=== PATIENT | female | born 1990 | race Caucasian/White ===

== ENCOUNTER → 2017-05-08 14:54 | Outpatient (CLI) | payer OTHER, SELFPAY ==
[2017-05-08 11:10] VITALS: BP 147/86; BMI 39.5
[2017-05-08 20:05] LABS: Chlamydia Trachomatis by PCR Negative (Negative); Neisserai gonorrhoeae by PCR Negative (Negative); Probe Check PASS; Sample Adequacy Control PASS; Specimen Processing Control PASS
[2017-05-13 12:22] LABS: HPV Reflexed? NOT INDICATED
== END ==
PROVIDERS: Visit Provider Nurse Practitioner Women's Health
DX: Z12.4 Encounter for screening for malignant neoplasm of cervix (principal); Z11.3 Encounter for screening for infections with a predominantly sexual mode of transmission
CPT/HCPCS: 87491; 87591; 88175; G0145

== ENCOUNTER → 2017-06-02 20:52 | Outpatient (CLI) | payer OTHER, SELFPAY | PROVIDERS: Visit Provider Nurse Practitioner Women's Health | DX: N89.8 Other specified noninflammatory disorders of vagina (principal) | CPT/HCPCS: 87070; 87205 ==

== ENCOUNTER → 2017-07-22 15:54 | Outpatient (CLI) | payer OTHER, SELFPAY | PROVIDERS: Visit Provider Physician Assistant Surgical | DX: J02.9 Acute pharyngitis, unspecified (principal) | CPT/HCPCS: 87081 ==

== ENCOUNTER 2018-10-06 12:51 | Observation (INO) | payer OTHER, SELFPAY ==
[2018-08-26 08:51] VITALS: BMI 39.5
[2018-09-30 08:43] VITALS: BMI 39.5
--- NOTE | 2018-10-05 17:47 | PCM.HP.BLA ---
History and Physical Date of Admission: 10/06/18 HISTORY OF PRESENT ILLNESS 28 year old woman presents with complaints of bilateral macromastia as well as associated painful symptomatology of neck pain, thoracic back pain, bilateral shoulder pain from shoulder grooving from the weight of her breasts on her bra straps, and inframammary intertrigo for which she uses powders for relief. She denies any trauma to her breasts. Denies any nipple discharge. She has been on a weight loss program with watching what she eats and doing cross fit exercise. She has lost 6 lbs in the past 2 months. She has seen a Chiropractor in the past for her back pain without much pain relief. She has not had a mammogram. She does not have a family history of breast cancer. We have received medical approval for the breast reduction surgery. It is scheduled for next week, 10/06/18. She presents at this time for preop evaluation. PAST MEDICAL HISTORY Back problem Frequent headaches UTI (urinary tract infection) Anxiety and depression PAST SURGICAL HISTORY None. ALLERGIES amoxicillin penicillin G MEDICATIONS diazepam FAMILY HISTORY Mother - Depression, Obesity, Alcohol abuse, Anxiety, Hormone imbalance Father - Hypertension, High cholesterol Grandfather - Diabetes Grandmother - Diabetes SOCIAL HISTORY Smoking Status: Never smoker alcohol intake: current alcohol intake frequency: holidays/special occasions only Alcohol type: wine details: social substance use type: does not use REVIEW OF SYSTEMS General - Denies fever, fatigue. Has 6 lb weight loss in the past 2 months. Eyes - Denies cataracts and glaucoma. ENT - Denies nasal congestion and sore throat. Endocrine - Denies excessive thirst and urination. Skin - Denies suspicious lesions and skin cancer. Has inframammary intertrigo for which she uses powders for relief. Musculoskeletal - Denies joint pain, joint stiffness, weakness of muscles and joints, and arthritis. Has neck pain and back pain. Her neck and back pain involve cervical and thoracic area. Has bilateral shoulder pain from shoulder grooving from the weight of her breasts on her bra straps. Neuro - Has headaches. Denies lightheadedness. Cardiovascular - Denies chest pain and shortness of breath with exertion. Denies fatigue and lightheadedness. Psych - Has a history of anxiety and depression. Respiratory - Denies shortness of breath and chronic cough. Has asthma. Gastrointestinal - Denies nausea, vomiting, diarrhea and constipation. Hematologic - Denies abnormal bruising and bleeding. Genitourinary - Denies hematuria. Has frequent urinary tract infections. PHYSICAL EXAMINATION General - Alert and oriented. Patient's bra size is 40 G. HEENT - PERRL. EOMI. Throat is clear. Neck - Supple. No bony tenderness. There is some pericervical soft tissue tenderness. Lungs- Clear to auscultation. Heart - Regular rate and rhythm. Breasts - Patient has bilateral macromastia. No breast masses palpable. No axillary adenopathy noted. Distance from midclavicular line on the left to the nipple is 34 cm and from the nipple to the inframammary fold is 12 cm. Distance from midclavicular line on the right to the nipple is 35 cm and from nipple to the inframammary fold is 12 cm. Nipple areolar complex diameter is 7 cm bilaterally. No active inframammary intertrigo noted at this time. Abdomen - Soft and non distended. Back - No bony tenderness noted. There is perivertebral soft tissue tenderness in the upper thoracic area. Extremities - FROM. No axillary adenopathy. Radial pulses are palpable. There is some bilateral shoulder tenderness with shoulder grooving from the weight of her breasts on her bra straps. Neuro - CN II-XII grossly intact. Psych - Normal and mood and affect. ASSESSMENT 1. Bilateral macromastia. 2. Neck pain. 3. Thoracic back pain. 4. Bilateral shoulder pain from shoulder grooving from the weight of the breasts on her bra straps. 5. Inframammary intertrigo. PLAN Discussed with the patient the procedure of breast reduction mammoplasty. I feel this procedure would be beneficial in this patient as it would help relieve her painful symptomatology. She will not need a mammogram preoperatively as she is only 28 years old. At some point postoperatively would like to get a breast reduction baseline mammogram. I would remove approximately 700 g of breast tissue per side. We will send the tissue to pathology for analysis to rule out carcinoma. Discussed with patient the extent of scarring for this procedure. The biggest risk for wound healing problems is the T-zone area. Usually wound care and sometimes antibiotics are necessary for healing in this area. She would have drains in for a few days depending on the amount of tissue that is removed. She will be on antibiotics until the drains are removed. Also discussed with the patient that a breast reduction procedure may make it difficult to breast feed in the future. She states that if she has children in the future and if she cannot breast feed, then she will bottle feed. In general, the final breast size would range from a full C to a low D cup. Patient voices understanding. Surgery will be done under general anesthesia with a surgical observation overnight stay in the hospital. We have received medical approval from her insurance carrier for the breast reduction surgery. She had some preop questions that were answered personally to her satisfaction. Consents were signed. Patient was informed of the risks and complications of the procedure including alternatives to surgery. These were discussed with her personally. She voices understanding and wishes to proceed. Some of the risks and complications were included in a form from the [place] [employer]. She states she is a little nervous about her upcoming surgery. Will write a script for some Valium (7 tabs) to help with her anxiety preoperatively. After her surgery, she will be on a lifting restriction (20 lbs) for 6 weeks. Since she states she lifts more than that at work, will tentatively have her off work for 6 weeks. She may go back to work a little sooner if healing is ok.
[2018-10-06] VITALS (10 sets, daily range): BP systolic 100–126; BP diastolic 57–81; PULSE 62–96; RESP 14–16; TEMP 36.4–36.8; O2SAT 95–100; BMI 38.0
[2018-10-06 06:24] LABS: Internal QC Validated? YES +Cl - CLEAR BKGD; Pregnancy, Urine Negative Negative
[2018-10-06] MEDS: Cefazolin 2 GM in 0.9% Normal Saline 100 ML IV (07:28)
--- NOTE | 2018-10-06 07:30 | BR_PTH ---
PATIENT: CLARE SOLANO LOC: [facility] U#:[id number] AGE/SX: ROOM: [facility]321 RE10/06/[address]: Dr. Bert Melton MD : 1990 BED: 1 DIS: 10/07/2018 SPEC #: [id number] RECD: 10/06/18 12:34 STATUS: IVANA REQ #: [id number] JERROD: 10/06/18 07:[address]: Bert Melton DEPT: SURGICAL PATHOLOGY RECD BY: Sawyer Borrego ENTERED: 10/06/18 14:18 SP TYPE: MAMOPLASTY OTHR DR: Dr. Baltazar Coughlin MD No Primary Care Phys Tissues: A - Left breast, NOS B - Right breast, NOS Procedures: Surgery Specimen Level IV HEADER OPERATION: Bilateral breast reduction mammoplasty PRE-OP DIAGNOSIS: Bilateral macromastia; neck and thoracic back pain, bilateral shoulder grooving TISSUE SUBMITTED: A - Left breast tissue, B - Right breast tissue MICROSCOPIC DIAGNOSIS A. Left breast, reduction mammoplasty: Mild fibrocystic change. Densely collagenized mammary parenchyma. Skin with no pathologic change. B. Right breast, reduction mammoplasty: Mild fibrocystic change. Densely collagenized mammary parenchyma. Skin with no pathologic change. Focal microscopic fibroadenomatous change. AM:lance 10/08/18 MICROSCOPIC DESCRIPTION Slides are reviewed. GROSS DESCRIPTION A - Received in fixative is one container labeled with the patient's name and designated left breast tissue. The specimen consists of multiple pieces of fibroadipose tissue with a few of the pieces showing maxwell-white skin weighing in aggregate 992 gm and measures in aggregate 23 x 23 x 8 cm. Sections reveal maxwell-yellow adipose cut surfaces with focal fibrous areas. No mass lesion is identified. Ornamental Metal Erector Apprentice sections are submitted in six cassettes. Cassette 1 also contains the skin piece. B - Received in fixative is one container labeled with the patient's name and designated right breast tissue. The specimen consists of multiple pieces of fibroadipose tissue with a few of the pieces showing maxwell-white skin weighing in aggregate 867 gm and measures in aggregate 24 x 22 x 6 cm. Sections reveal maxwell-yellow adipose cut surfaces with focal fibrous areas. No mass lesion is identified. Ornamental Metal Erector Apprentice sections are submitted in six cassettes. Cassette 1 also contains the skin piece. / SJ:lance 10/07/18 TC:5 CPT: 21373 x2
--- NOTE | 2018-10-06 11:26 | SUR.OPER ---
RANGE OF MOTION BLE. KENAN
--- NOTE | 2018-10-06 11:29 | SUR.OPER ---
PATIENTS FAMILY GIVEN AN UPDATE
--- NOTE | 2018-10-06 12:07 | SUR.OPER ---
ancef 1 gram given per anesthesia at 12 noon
--- NOTE | 2018-10-06 12:44 | PCM.OPRPT ---
Report of Operation Date of Procedure: 10/06/18 Pre-Operative Diagnosis: 1. Bilateral macromastia. 2. Neck pain. 3. Thoracic back pain. 4. Bilateral shoulder pain from shoulder grooving from the weight of the breasts on her bra straps. 5. Inframammary intertrigo. Post-Operative Diagnosis: Same. Surgery/Procedure Performed:: Bilateral breast reduction mammaplasty. Description of Surgical Findings:: 28 year old woman presents with complaints of bilateral macromastia as well as associated painful symptomatology of neck pain, thoracic back pain, bilateral shoulder pain from shoulder grooving from the weight of her breasts on her bra straps, and inframammary intertrigo for which she uses powders for relief. She denies any trauma to her breasts. Denies any nipple discharge. She has been on a weight loss program with watching what she eats and doing cross fit exercise. She has lost 6 lbs in the past 2 months. She has seen a Chiropractor in the past for her back pain without much pain relief. She has not had a mammogram. She does not have a family history of breast cancer. We have received medical approval for the breast reduction surgery. Patient was informed of the risks and complications of the procedure including alternatives to surgery. These were discussed with the patient personally. Patient voices understanding and wishes to proceed. Some of the risks and complications were included in a form from the [place] [employer]. IV Fluids - 1700 ml. Urine Output -515 ml. Tissue removed from the left breast - 952 grams. Tissue removed from the right breast - 832 grams. I used Ara absorbable hemostat, (I used 4 vials, 2 in each breast). Reference Number - [id number]. Lot Number - [id number]. Expiration - May 28, 2023. foam rubber fabricator: Matt Segura. Type of Anesthesia:: General Specimen's removed: 1. Left breast tissue to Pathology. 2. Right breast tissue to Pathology. Drains: James x2 (one in each breast). Estimated Blood Loss (mL): 250 ml. Fluids Replaced: 2215 ml (IV Fluids 1700 ml, Urine Output 515 ml). Description of Procedure: The patient was taken to the operating room and in the sitting position, preoperative markings were made. The sternum midline was marked down to the umbilicus. The inframammary folds were marked bilaterally. The midclavicular line was then marked down to the nipple, then from the nipple to the inframammary fold. The inframammary fold was then superimposed on the midclavicular line and I made a point 1 cm below that to be the new position of the nipple-areolar complex. 7 cm lines were then drawn divergent from that point to encompass the nipple-areolar complex. The distance between the divergent lines was 9 cm. The patient was then placed in the supine position and placed under general anesthesia and her breasts were prepped and draped in usual fashion. SCDs were placed for DVT prophylaxis. Perioperative antibiotics were given intravenously. A Velez catheter was also placed. I then tattooed the preoperative markings with methylene blue and 25-gauge needle. I also tattooed the 12 o'clock position of the nipple-areolar complex to help with positioning of the nipple-areolar complex when it is brought through the keyhole incision at the end of the procedure to minimize kinking and twisting of the central breast mound pedicle. I then alvina straight lines down from the lines drawn divergent around the nipple-areolar complex down to the inframammary fold. The width of the pedicle is 9 cm. I then used a 42 mm circular template for a new size of the nipple-areolar complex. The central markings were infiltrated with Xylocaine and epinephrine. The central skin was then deepithelialized. I started on the right side first and then went to the left side. I then mobilized medial and lateral breast flaps at the level of Manisha's fascia down to within a centimeter of the chest wall. This was met in the midline of the breast with dissection at the level of Manisha's fascia down to within a centimeter of the chest wall. Once the central breast mound pedicle was from the skin envelope, the reduction was then begun. Most of the tissue was removed from the superior aspect of the breast and the lateral aspect of the breast. I then sutured the leading edge of the medial and lateral breast flaps to the midline of the inframammary fold with 2-0 Vicryl suture. The vertical incision was approximated using surgical clips. The excess tissue from the medial and lateral breast flaps were excised and the horizontal incision was approximated using surgical clips. The patient was then placed in a sitting position. Using a vertical limb length of 4.5 cm, I alvina the new position of the new nipple-areolar complexes on both breasts. They were in good position on the central aspect of the breast mound. Good symmetry was noted between the left breast and the right breast. Good shape and contour and projection was noted and appeared clinically to be at least a full C cup. The patient was then placed back in the supine position and the surgical clips were removed. The breast wounds were then irrigated with saline. Hemostasis was obtained using electrocautery. The tissue removed from the left breast was 952 grams. The tissue removed from the right breast was 832 grams. The tissue that was removed from the breasts was sent to Pathology for analysis to rule out carcinoma. After hemostasis was obtained using electrocautery, I then sprayed Ara absorbable hemostat into both breast wounds. I used two vials for each side. I then placed a size 15 James drain into each breast wound to be brought through the lateral aspect of the horizontal incision. I then closed the breast wounds by first approximating the leading edge of the medial and lateral breast flaps to the midline of the inframammary fold with 2-0 Vicryl suture. The deep dermis and subcutaneous tissue of the vertical incision and the horizontal incisions were approximated using 3-0 Monocryl interrupted sutures. The horizontal incision was then approximated using 4-0 V-Loc unidirectional barbed running subcuticular suture. I also placed a few 4-0 Prolene vertical mattress interrupted sutures at the level of the Tzone. The vertical incision was then closed on the skin with 4-0 Prolene interrupted sutures. With a vertical limb length of 4.5 cm, I alvina a circular incision where the nipple-areolar complex would be brought through this keyhole incision. Incisions were made and the nipple areolar complex was brought through the keyhole incision. The 12 o'clock position of the nipple-areolar complex was lined up with the 12 o'clock position of the breast skin. The nipple-areolar complex was secured to the breast skin using 3-0 Monocryl interrupted sutures for deep dermis and subcutaneous tissue. The skin was approximated using 4-0 Prolene simple interrupted sutures. This was then covered with Histoacryl skin tissue adhesive. I sutured the drain to the skin using 3-0 nylon suture. At the end of the procedure, the breasts were soft with no evidence of vascular compromise. No evidence of hematomas were noted. The nipples were viable. I then dressed the breasts with a Kerlix gauze and a surgical bra. The patient tolerated the procedure well and will be sent to the recovery room in satisfactory condition. She will be admitted for surgical observation overnight stay. She will go home tomorrow once she is tolerating oral pain medication. I will remove the drains in a few days. She will be maintained on antibiotics until the drains are removed. She will keep her head elevated during the initial postoperative period. She will be maintained on a lifting restriction and keep her head elevated during the initial postoperative period. Postoperatively, she may get a compression sports bra as well. She will have the Velez removed in the morning. She will be sent home on antibiotics and pain medicine for a few days. Sutures will be removed in 1-2 weeks. Grafts/Implants Used: None. - Complications None. - Admit VTE Documentation VTE Present on Admission: No VTE Mechan Device Prophylaxis: SCD's VTE Pharm Prophylaxis ordered?: Yes Code Visit Surgery Charges CPT - 23242-01 ICD-10 - N62, M54.2, M54.6, M25.519, L30.4 16558 N62, M54.2, M54.6, M25.519, L30.4
[2018-10-06] MEDS: HYDROmorphone 1 MG/ML Syringe IV (15:23)
[2018-10-06] MEDS: 0.9% NaCl Peripheral Flush Adult/Peds IV (15:23)
[2018-10-06] MEDS: Lactated Ringers 1,000 ML 60 ML IV (15:23)
[2018-10-06] MEDS: Cefazolin 1 GM/50 ML BAG IV ×2 (15:31→21:13)
[2018-10-06] MEDS: Acetaminophen 325 MG Tablet 650 MG PO ×2 (17:22→21:21)
[2018-10-06] MEDS: oxyCODONE 5 MG Tablet 10 MG PO ×2 (18:58→22:27)
[2018-10-06] MEDS: Docusate Sodium 100 MG Capsule PO (21:13)
[2018-10-07 01:00] VITALS: BP 105/57; PULSE 64; RESP 16; TEMP 36.8; O2SAT 98
[2018-10-07] MEDS: oxyCODONE 5 MG Tablet 10 MG PO ×3 (02:18→10:03)
[2018-10-07] MEDS: Enoxaparin 40 MG/0.4 ML Syringe SC (06:10)
[2018-10-07] MEDS: Cefazolin 1 GM/50 ML BAG IV (06:12)
[2018-10-07 06:37] LABS: Hematocrit 29.9 % (37-47); Hemoglobin 9.8 g/dl (12.0-15.0); Mean Corp Hgb Conc 32.8 g/gl (32-36); Mean Corpuscular Hgb 27.6 pg (27.0-32.0); Mean Corpuscular Volume 84.2 fL (81-99); Platelet Count 262 K/mm3 (150-450); RBC Distribution Width CV 13.9 % (11.6-14.6); RBC Distribution Width SD 41.6 fl (35.1-43.9); Red Blood Count 3.55 M/mm3 (4.2-5.4); White Blood Count 11.8 K/mm3 (4.4-11.0)
[2018-10-07 06:40] LABS: Scan Indicated on CBC? Y/N NO
[2018-10-07 06:47] LABS: BUN 13 mg/dL (7-18); BUN/Creat Ratio 18.6 RATIO (10-20); Calcium,Total 8.1 mg/dL (8.5-10.1); Chloride 107 mmol/L (98-107); EST Glomerular Filtration Rate 107 mL/min (>60); Est Glom Filt Rate - Afr Amer 129 mL/min (>60); Estimated Creatinine Clearance 99.86 ml/min; Glucose 123 mg/dL (74-106); Potassium 4.3 mmol/L (3.5-5.1); Sodium Level 141 mmol/L (136-145)
[2018-10-07 06:48] LABS: Anion Gap 7 (5-15); Prealbumin 14.3 mg/dL (20.0-40.0)
[2018-10-07 07:22] VITALS: BP 96/49; PULSE 77; RESP 16; TEMP 37.4; O2SAT 100
--- NOTE | 2018-10-07 08:04 | PCM.PN.SRG ---
Subjective: Postop #1 Patient is resting comfortably. - Physical Exam General: Alert, Oriented x3 HEENT: PERRLA, EOMI Oral: Moist Mucosa Neck: Supple Abdomen: Soft, Non-Distended Skin: Incision - bilateral breast incisions are dry and intact. Breasts are soft and symmetrical. Nipples are viable. Minor bruising seen on the skin flaps. Neurological: Cranial nerves II-XII grossly intact Psych/Mental Status: Normal Affect, Appropriate Vital Signs Temp Pulse Resp BP Pulse Ox 99.4 F H 77 16 96/49 L 100 10/07/18 07:22 10/07/18 07:22 10/07/18 07:22 10/07/18 07:22 10/07/18 07:22 Oxygen Delivery Method Room Air Weight: 214 lb 15.211 oz Body Mass Index (BMI) 38.0 Intake and Output for Last 24 Hours 10/05/18 10/06/18 10/07/18 23:59 23:59 23:59 Intake Total 2142 / 2142 1187 / 1187 Output Total 948 / 1473 985 / 985 Balance 1194 / 669 202 / 202 Dranage - 58 ml yesterday, 85 ml today. Laboratory Tests Past 24 Hrs 10/07/18 10/07/18 05:58 05:58 WBC 11.8 H RBC 3.55 L Hgb 9.8 L Hct 29.9 L MCV 84.2 MCH 27.6 MCHC 32.8 RDW 13.9 RDW Differential 41.6 Plt Count 262 MPV 11.0 Sodium 141 Potassium 4.3 Chloride 107 Carbon Dioxide 27.0 Anion Gap 7 BUN 13 Creatinine 0.70 Estim Creat Clear Calc 99.86 Est GFR (MDRD) Af Amer 129 Est GFR (MDRD) Non-Af 107 BUN/Creatinine Ratio 18.6 Glucose 123 H Calcium 8.1 L Prealbumin 14.3 L Medical Necessity - Tobacco Use Smoking Status: Never smoker Tobacco Use: Non-smoker Assessment/Plan All Active Problems (Last Updated 08/26/18 @ 08:36 by Richelle Pickering) Pharyngitis, acute (Acute) 1. Bilateral macromastia. 2. Neck pain. 3. Thoracic back pain. 4. Bilateral shoulder pain from shoulder grooving from the weight of the breasts on her bra straps. 5. Inframammary intertrigo. 6. s/p bilateral breast reduction mammaplasty. 7. Anemia of chronic disease, acute on chronic. Patient has some incisional pain. Tolerating po analgesia. Breast incisions are dry and intact. Breasts are soft and symmetrical. Nipples are viable. Prealbumin was 14.3. Encourage nutritional supplementation with protein to help the healing process. Hgb was 9.8. Patient has anemia of chronic disease, acute on chronic. She had about 250 ml operative blood loss. Currently there is no clinical evidence of hematoma. Will start Iron supplementation. Will followup with her PCP as outpatient regarding further anemia workup. As an outpatient in the next month, will repeat the Hgb. Discharge home today. Followup office 10/09/18, to remove the drains. Keep head elevated. Continue lifting restriction. Wrote scripts for Doxycycline for 5 days until the drains are removed in the office. Wrote scripts for Percocet for pain (40 tabs) and for Valium for spasm (10 tabs). Wrote scripts for Phenergan for nausea (30 tabs) and a refill and for Colace for constipation (60 tabs). Wrote script for Iron supplementation (30 tabs) and 2 refills.
[2018-10-07] MEDS: Docusate Sodium 100 MG Capsule PO (10:03)
--- NOTE | 2018-10-07 12:10 | DCINST_ITS ---
You will use the following diet at home:: No restrictions, Other - encourage nutritional supplementation with protein to help the healing process. Discharge Activity: May not drive while taking narcotic pain medications., May Not Shower - until the drains are removed., - - keep head elevated. no heavy lifting. Return to work on:: 11/12/18 - tentative May shower in (days): 2 - after the drains are removed in the office. May resume sexual activity in: 10-14 days Weight Bearing Status: Weight bearing as tolerated Lifting Restrictions: 20 lbs. Keep extremity elevated above heart level: - - elevate head. Call your doctor if your incision/area has: Continuous Slow Oozing, Sudden Increased Bleeding, Increased Pain/ Swelling, Increased Redness, Foul Smelling D ischarge, Swelling at the incision site, - - black nipples. Call your doctor if you observe: Fever of 101 or Higher, Coldness, Increased Pain, Shortness of breath, Chest pain, Calf discomfort, Uncontrolled pain Suture Line Care: - - dry dressings daily. Change Dressing in (Days):: 1 - dry dressings daily. Cleanse incision/area with: - - may get incisions wet in the shower after the drains are removed. Drain: Suction - coby drains x2 to bulb suction. empty and record output daily. Allergies/Adverse Reactions: Allergies amoxicillin Adverse Reaction (Mild, Verified 09/30/18 08:42) HEADACHES penicillin G Adverse Reaction (Mild, Verified 09/30/18 08:42) headache Medications to take at Discharge Diazepam [Valium] 5 mg PO BID #10 tab 10/07/18 Docusate Sodium [Colace] 100 mg PO BID #60 cap 10/07/18 Doxycycline 100 mg PO BID #10 cap 10/07/18 Iron Polysaccharide Complex [Ferrex 150] 150 mg PO DAILYCM #30 cap 10/07/18 Oxycodone HCl/Acetaminophen [Percocet 5/325] 1 tab PO Q4H PRN PRN 7 Days #40 tab 10/07/18 proMETHazine tablet [Phenergan tablet] 25 mg PO 4X/DAY PRN PRN #30 tab 10/07/18 The following prescriptions were given: Docusate Sodium [Colace] 100 mg PO BID #60 cap Prescription Printed Doxycycline 100 mg PO BID #10 cap Prescription Printed Iron Polysaccharide Complex [Ferrex 150] 150 mg PO DAILYCM #30 cap Prescription Printed Oxycodone HCl/Acetaminophen [Percocet 5/325] 1 tab PO Q4H PRN PRN 7 Days #40 tab PRN Reason: Pain Prescription Printed proMETHazine tablet [Phenergan tablet] 25 mg PO 4X/DAY PRN PRN #30 tab PRN Reason: NAUSEA/VOMITING Prescription Printed Diazepam [Valium] 5 mg PO BID #10 tab Prescription Printed Orders to be completed after discharge: CBC-Complete Blood Cnt No Diff Time Frame: 1 Month, Facility: [facility], Location: [facility] Primary Care Physician: Baltazar Coughlin MD [Primary Care Provider] - Please follow up with your Primary Care Physician in: 4-6 weeks to further evaluate anemia. Test Results: Test results from this visit will be discussed in further detail at your follow- up appointment, if applicable. Please Follow Up With: Bert Melton MD When: friday10/09/18. call [phone] for appt. Proposed Discharge Date: 10/07/18
[2018-10-07 14:25] VITALS: BP 126/66; PULSE 76; RESP 16; TEMP 37.4; O2SAT 100
[2018-10-07] MEDS: Acetaminophen 325 MG Tablet 650 MG PO (14:46)
== END 2018-10-07 14:55 | disposition home or self-care (01) ==
LOC: SDC 13:09
PROVIDERS: Anesthesiology; Admitting Provider Surgery; Family Provider Internal Medicine; PCP Internal Medicine; Visit Provider Surgery
PROC: 0H0U0ZZ Alteration of Left Breast, Open Approach (ICD-10-PCS; CPT 19318; principal; 2018-10-06 07:15)
DX: N62 Hypertrophy of breast (principal); M54.2 Cervicalgia; M54.6 Pain in thoracic spine; M25.512 Pain in left shoulder; M25.511 Pain in right shoulder; L30.4 Erythema intertrigo; D63.8 Anemia in other chronic diseases classified elsewhere
CPT/HCPCS: 00402; 19318; 36415; 80048; 81025; 84134; 85027; 88305; 96365; 96366; 96372; 96375; 99218; J7120; A4216; G0378; G0379; J2405; Q9968

== ENCOUNTER → 2018-11-09 20:38 | Outpatient (CLI) | payer OTHER, SELFPAY ==
[2018-11-09 16:17] VITALS: BMI 38.0
== END ==
PROVIDERS: Family Provider Internal Medicine; PCP Internal Medicine; Referring Provider Nurse Practitioner Family; Visit Provider Nurse Practitioner Family
DX: T81.89XA Other complications of procedures, not elsewhere classified, initial encounter (principal)
CPT/HCPCS: 87070; 87075; 87076; 87077; 87186; 87205

== ENCOUNTER → 2022-01-16 | Outpatient (CLI) | payer OTHER, SELFPAY ==
[2022-01-16 17:39] LABS: Vitamin D,25 Hydroxy 34.2 ng/mL
[2022-01-16 17:46] LABS: Thyroid Stim Hormone (TSH) 1.49 uIU/mL (0.358-3.74)
== END | disposition home or self-care (01) ==
LOC: BIMLAB 16:20
PROVIDERS: PCP Internal Medicine; Referring Provider Nurse Practitioner Family; Visit Provider Nurse Practitioner Family
DX: F41.8 Other specified anxiety disorders (principal); G47.10 Hypersomnia, unspecified; E56.9 Vitamin deficiency, unspecified
CPT/HCPCS: 36415; 82306; 84443